=== PATIENT | female | born 1985 | race Native Hawaiian/Other Pacific Islander ===

== ENCOUNTER 2019-05-24 14:14 | Emergency (ER) | payer OTHER ==
[~2019-05-24] VITALS: Ht 165.1 cm; Wt 70.3 kg
[2019-05-24 14:25] VITALS: TEMP 99
[2019-05-24 16:06] VITALS: BP 118/72
== END 2019-05-24 16:05 | disposition home or self-care (01) ==
LOC: ED 14:14
DX: F41.0 Panic disorder [episodic paroxysmal anxiety] (principal)
CPT/HCPCS: 93005; 99282; 99283

== ENCOUNTER 2019-08-04 10:45 | Outpatient (CLI) | payer OTHER ==
[2019-08-04 11:23] LABS: PLATELET COUNT 237 K/uL (152-353)
== END 2019-08-04 20:14 | disposition home or self-care (01) ==
LOC: LABW 10:45
PROVIDERS: Nurse Practitioner Family
DX: F31.9 Bipolar disorder, unspecified (principal)
CPT/HCPCS: 36415; 81025; 82565; 84443; 85027

== ENCOUNTER 2019-09-01 15:33 | Outpatient (CLI) | payer OTHER | END 2019-09-01 20:14 | disposition home or self-care (01) | LOC: LABW 15:33 | DX: Z00.00 Encounter for general adult medical examination without abnormal findings (principal) | CPT/HCPCS: 36415; 86787 ==